=== PATIENT | male | born 1950 | race Caucasian/White ===

== ENCOUNTER 2016-08-20 07:25 | Day surgery (SDC) | payer MEDICARE ==
[~2016-08-20] VITALS: Ht 177.8 cm; Wt 127.0 kg
[~2016-08-20 07:25] MED LIST: Sodium Chloride LOK Flush 10 mL Syringe IV PRN; fentaNYL-PF 50 mCg/mL 2 mL Inj IVPUSH PRN
[2016-08-20 07:51] VITALS: BP 142/87; PULSE 80; RESP 15; O2SAT 95
[2016-08-20] MEDS: 0.9% Sodium Chloride 1,000 ML IV SCH ×2 (08:11→08:37)
[2016-08-20 08:19] VITALS: BP 128/86; PULSE 80; RESP 16; O2SAT 94
[2016-08-20 08:29] VITALS: BP 127/87; PULSE 83; RESP 16; O2SAT 93
--- NOTE | 2016-08-20 08:42 | ENDO ---
[address] [address] ENDOSCOPY PROCEDURE PATIENT: MYNOR LOMBARDO : 1950 MR#: [id number] ADMIT: 08/20/2016 JOB ID: [id number] PROCEDURE: Colonoscopy with hot snare polypectomy. PREOPERATIVE DIAGNOSIS(ES): Family history of colon cancer. POSTOPERATIVE DIAGNOSIS(ES): 1. Mild sigmoid diverticulosis. 2. An 8 mm sigmoid polyp removed by hot snare polypectomy. ANESTHESIA: Fentanyl 50 mcg, Versed 3 mg IV administered. COMPLICATIONS: None. BLOOD LOSS: Minimal. DESCRIPTION OF PROCEDURE: After risks and benefits were explained to the patient, informed consent was obtained. After anesthesia administered, a colonoscope was inserted from the rectum to the cecum. Mucosa carefully examined. Prep of the patient was excellent. After the procedure was done, the scope withdrawn, procedure terminated. FINDINGS: Upon inspection of the anus, no masses, hemorrhoids, ulcers, or fissures that were seen throughout the entire examination. There is a 8 mm sigmoid colon polyp removed by hot snare polypectomy. There was mild sigmoid diverticulosis. Retroflexion was normal. IMPRESSION: 1. An 8 mm sigmoid polyp removed by hot snare polypectomy. 2. Mild sigmoid diverticulosis. RECOMMENDATIONS: Await pathology results. Repeat colonoscopy in five years given family history of colon cancer. High fiber diet.
--- NOTE | 2016-08-21 11:17 | PATH ---
SURGICAL PATHOLOGY Attending Physician:Julián Delaney MD CASE STATUS: Signed Out PATIENT NAME: MYNOR LOMBARDO PID: [id number] : 1950 DATE COLLECTED:08/20/2016 18:29 SPECIMEN: Colon, Biopsy CLINICAL HISTORY: FAMILY HX COLON CA, COLON POLYP 1). SIGMOID POLYP FINAL DIAGNOSIS: 1.SIGMOID POLYP: TUBULAR ADENOMA. ICD10 CODE D12.5 GROSS DESCRIPTION: The specimen is received in one formalin filled container labeled with the patient's name, sublabeled "sigmoid polyp" and consists of 2 portions of tissue which aggregate to 1.0 x 0.7 0.6 CM. The first piece is entirely submitted in one cassette. The largest piece is trisected and entirely submitted in the same cassette. 08/20/2016 DAC MICRO DESCRIPTION: See diagnosis. ICD-9 CODES: CPT CODES: 1: 14186 Electronically Signed Out Kelly Uriostegui MD [facility] [address], [place] [address] Technical component performed at [facility], [address] [place] [address] Ave[address], [place], [address]
== END 2016-08-20 23:59 | disposition home or self-care (01) ==
LOC: END 07:25
PROVIDERS: ATTEND Internal Medicine Gastroenterology
DX: Z12.11 Encounter for screening for malignant neoplasm of colon (principal); D12.5 Benign neoplasm of sigmoid colon; K57.30 Diverticulosis of large intestine without perforation or abscess without bleeding; Z86.010 Personal history of colon polyps; Z80.0 Family history of malignant neoplasm of digestive organs; R06.83 Snoring
CPT/HCPCS: 45385; G0500; J2250; J3010; J7030